=== PATIENT | male | born 1990 | race American Indian/Alaskan Native ===

== ENCOUNTER 2017-02-09 01:00 | Emergency (ER) | payer SELFPAY ==
[2017-02-09] MEDS ORDERED: XYLOCAINE 1%/ EPI 1:100,000 INFILTRATI ONE (02:55)
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
[2017-02-09] MEDS ORDERED: BOOSTRIX IM ONE (03:42)
== END 2017-02-09 04:45 | disposition home or self-care (01) ==
LOC: ED 01:00
DX: S61.411A Laceration without foreign body of right hand, initial encounter (principal); F17.200 Nicotine dependence, unspecified, uncomplicated; W25.XXXA Contact with sharp glass, initial encounter; Y93.89 Activity, other specified; Y99.8 Other external cause status; Y92.89 Other specified places as the place of occurrence of the external cause
CPT/HCPCS: 90471; 90715